=== PATIENT | male | born 1975 | race Caucasian/White ===

== ENCOUNTER 2018-05-08 18:15 | Emergency (ER) | payer SELFPAY ==
--- NOTE | 2018-05-08 19:02 | EDM.PDOC ---
ED HPI GENERAL MEDICAL PROBLEM - General Chief Complaint: General Stated Complaint: ABD PAIN Time Seen by Provider: 05/08/18 18:30 Source of Information: Reports: Patient History Limitations: Reports: No Limitations - History of Present Illness INITIAL COMMENTS - FREE TEXT/NARRATIVE: Pt claims that he has left sided back and abdominal pain for about 1 month now. Pt describes the pain as intermittent, some times it hurts in his left loin, and some times the pain from the left loin radiates into left anterior abdomen and some times the pain goes into his right lower abdomen. Pain is not present all the time. Sometime it hurts when he is sitting or sleeping, and sometimes movements like bending or twisting of the lower back causes the pain. There has been no trauma to the back or abdomen. His pain ranges up to 10/10. Today he claims his pain is at 6/10 and hurts in the left loin area. Pt's spouse claims he hurts even if she hugs him. No fever or chills. No skin rash.No nausea or vomiting, no abdominal distension , no diarrhea or constipation. No dysuria or hematuria. No fatigue or malaise. No loss of appetite or weight. No other complaints. Duration: Week(s): (4-5 weeks), Intermittent, Waxing/Waning Location: Reports: Abdomen, Back Quality: Reports: Ache Severity: Moderate Improves with: Reports: None Worsens with: Reports: None Associated Symptoms: Denies: Confusion, Chest Pain, Cough, Diaphoresis, Fever/ Chills, Headaches, Loss of Appetite, Malaise, Nausea/Vomiting, Rash, Seizure, Shortness of Breath, Syncope, Weakness - Related Data Allergies Allergy/AdvReac Type Severity Reaction Status Date / Time No Known Allergies Allergy Verified 05/08/18 18:44 Home Meds: Home Meds NK [No Known Home Meds] 05/08/18 [History] ED ROS GENERAL - Review of Systems Review Of Systems: See Below Constitutional: Denies: Fever, Chills, Malaise, Night Sweats, Diaphoresis, Weight Loss, Weight Gain HEENT: Denies: Rhinitis, Throat Pain, Throat Swelling Respiratory: Denies: Shortness of Breath, Wheezing, Pleuritic Chest Pain, Cough , Sputum Cardiovascular: Denies: Chest Pain, Lightheadedness GI/Abdominal: Reports: Flatus. Denies: Abdominal Pain, Anorexia, Constipation, Diarrhea, Decreased Appetite, Distension, Hematochezia, Nausea, Stool Incontinence, Vomiting : Reports: Flank Pain. Denies: Dysuria, Frequency, Hematuria, Incontinence Musculoskeletal: Denies: Joint Pain, Joint Swelling, Muscle Pain, Muscle Stiffness Skin: Denies: Jaundice, Bruising, Pruritis, Rash Neurological: Denies: Confusion, Dizziness, Headache, Numbness, Tingling Psychiatric: Denies: Agitation, Anxiety ED EXAM, GENERAL - Physical Exam Exam: See Below Exam Limited By: No Limitations General Appearance: Alert, WD/WN, No Apparent Distress Eye Exam: Bilateral Eye: EOMI, PERRL Ears: Normal External Exam, Normal Canal, Hearing Grossly Normal, Normal TMs Ear Exam: Bilateral Ear: Auricle Normal, Canal Normal, TM normal Nose: Normal Inspection, Normal Mucosa, No Blood Throat/Mouth: Normal Inspection, Normal Lips, Normal Teeth, Normal Gums, Normal Oropharynx, Normal Voice, No Airway Compromise Head: Atraumatic, Normocephalic Neck: Normal Inspection, Supple, Non-Tender, Full Range of Motion Respiratory/Chest: No Respiratory Distress, Lungs Clear, Normal Breath Sounds, No Accessory Muscle Use, Chest Non-Tender Cardiovascular: Normal Peripheral Pulses, Regular Rate, Rhythm, No Edema, No Gallop, No JVD, No Murmur, No Rub GI/Abdominal: Normal Bowel Sounds, Soft, Non-Tender, No Organomegaly, No Distention, No Abnormal Bruit, No Mass Back Exam: Normal Inspection, CVA Tenderness (L), Paraspinal Tenderness (tender over the left lumbar paraspinal muscles all the way form the posteiror chest margin into the iliac crest. Also pt is tender over the let costal margin laterally an also over the anterio aspect of the iiliac crest. There is no abdominal wall tenderness.) Extremities: Normal Inspection, Normal Range of Motion, Non-Tender, Normal Capillary Refill, No Pedal Edema Neurological: Alert, Oriented, CN II-XII Intact, Normal Cognition, Normal Gait, Normal Reflexes, No Motor/Sensory Deficits Skin Exam: Warm, Intact Course - Vital Signs Text/Narrative:: Pt has had 1 month history of left sided trunk pain. pain is intermittent and varies in intensity every day. Pain worsens with movement of the back like bending forward and twisting motion. Vitals are stable. On clinical exam his abdomen exam is benign. His hernia exam is negative. His tenderness is over the lower posterior ribs, left lumbar paraspinal muscles and the left iliac crest. There is no sensory paresthesia of the lower back to be concerned of herpes zoster related pain. This appears like Mechanical pain asso with back and lateral abdominal wall muscles. But patient and spouse concerned that there is some thing serious going on at this time. Patient does not have any other constitutional symptoms. This is mechanical pain or pain from left sided deep muscular or metastatic pain. These are the only differential diagnosis I can come up with patient presentation. Hence I did get Ct abdomen and pelvis. I do not think there is need for any blood work at this point. Pt's Ct abdomen appears normal. I have reassured patient and spouse that there is no acute intraabdominal pathology causing pain. There is no infective cause or bowel obstruction or mass or hernia causing the pain. Appears more like a musculoskeletal pain both from presentation and examination.Advised intermittent heat to the back 3-4 times daily, motrin 800mg 3 times daily with food for next 5 days. Avoid excessive twisting or bending activities. If pain not better in 1 wk should followup in clinic for further workup. - Orders/Labs/Meds Orders: Active Orders 24 hr Category Date Time Status Abdomen Pelvis wo Cont [CT] Stat Exams 05/08/18 18:50 Taken Departure - Departure Time of Disposition: 19:45 Disposition: Home, Self-Care 01 Condition: Fair Clinical Impression: Mechanical back pain - Discharge Information *PRESCRIPTION DRUG MONITORING PROGRAM REVIEWED*: Not Applicable *COPY OF PRESCRIPTION DRUG MONITORING REPORT IN PATIENT JACK: Not Applicable Referrals: PCP,None [Primary Care Provider] - Forms: ED Department Discharge Additional Instructions: Pt's Ct abdomen appears normal. I have reassured patient and spouse that there is no acute intraabdominal pathology causing pain. There is no infective cause or bowel obstruction or mass or hernia causing the pain. Appears more like a musculoskeletal pain both from presentation and examination.Advised intermittent heat to the back 3-4 times daily, motrin 800mg 3 times daily with food for next 5 days. Avoid excessive twisting or bending activities. If pain not better in 1 wk should followup in clinic for further workup. - Problem List & Annotations (1) Mechanical back pain SNOMED Code(s): 647337908, 554988025 Code(s): M54.9 - DORSALGIA, UNSPECIFIED Status: Acute Current Visit: Yes - Problem List Review Problem List Initiated/Reviewed/Updated: Yes - My Orders Last 24 Hours: My Active Orders 05/08/18 18:50 Abdomen Pelvis wo Cont [CT] Stat - Assessment/Plan Last 24 Hours: My Active Orders 05/08/18 18:50 Abdomen Pelvis wo Cont [CT] Stat Assessment:: Mechanical back pain- left sided Plan: Pt has had 1 month history of left sided trunk pain. pain is intermittent and varies in intensity every day. Pain worsens with movement of the back like bending forward and twisting motion. Vitals are stable. On clinical exam his abdomen exam is benign. His hernia exam is negative. His tenderness is over the lower posterior ribs, left lumbar paraspinal muscles and the left iliac crest. There is no sensory paresthesia of the lower back to be concerned of herpes zoster related pain. This appears like Mechanical pain asso with back and lateral abdominal wall muscles. But patient and spouse concerned that there is some thing serious going on at this time. Patient does not have any other constitutional symptoms. This is mechanical pain or pain from left sided deep muscular or metastatic pain. These are the only differential diagnosis I can come up with patient presentation. Hence I did get Ct abdomen and pelvis. I do not think there is need for any blood work at this point. Pt's Ct abdomen appears normal. I have reassured patient and spouse that there is no acute intraabdominal pathology causing pain. There is no infective cause or bowel obstruction or mass or hernia causing the pain. Appears more like a musculoskeletal pain both from presentation and examination.Advised intermittent heat to the back 3-4 times daily, motrin 800mg 3 times daily with food for next 5 days. Avoid excessive twisting or bending activities. If pain not better in 1 wk should followup in clinic for further workup.
--- NOTE | 2018-05-09 08:22 | CT ---
DATE OF SERVICE: 05/08/18 CLINICAL DATA: Left lower chest and back pain- Chronic. UNENHANCED ABDOMEN AND PELVIS CT: No priors. There are minimal atelectasis changes in the dependent portions of the left lower lungs. The lung base is otherwise clear. The heart size is normal. The unenhanced liver appears normal. No focal hepatic lesions. The gallbladder is contracted. No calcified gallstones. No pericholecystic fluid. The spleen appears normal. 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 The pancreas appears normal. The right and left adrenals appear normal. The right and left kidneys appear normal. No nephrocalcinosis or nephrolithiasis. No hydronephrosis or hydroureter. No evidence of appendicitis. No free air. No free fluid. No dilated loops of bowel. No adenopathy. No aortic aneurysm. The bladder is partially fluid filled and appears normal. There is an umbilical hernia containing fat. IMPRESSION: No acute abnormalities. Otherwise findings as discussed above. [id number] [facility]
== END 2018-05-08 19:50 | disposition home or self-care (01) ==
LOC: LB.ED 18:15
DX: M54.5 Low back pain (principal)
CPT/HCPCS: 74176; 99284-25

== ENCOUNTER 2018-12-07 | Emergency (ER) | payer MEDICAID, MEDICARE ==
[2018-12-07] MEDS ORDERED: Amoxicillin/Clavulanate K 875-125 MG Tab ONE (00:10)
--- NOTE | 2018-12-07 09:27 | EDM.PDOC ---
ED HPI GENERAL MEDICAL PROBLEM - General Chief Complaint: General Stated Complaint: SORE THROAT Time Seen by Provider: 12/07/18 00:10 Source of Information: Reports: Patient History Limitations: Reports: No Limitations - History of Present Illness INITIAL COMMENTS - FREE TEXT/NARRATIVE: This is a 43yo M with a mass of the right neck area that is tender and has grown the past few days. He denies fever or chills. Denies any other concerns. He felt off the past few days but cannot put a finger on it. Onset: Gradual Duration: Day(s): Location: Reports: Neck - Related Data Allergies Allergy/AdvReac Type Severity Reaction Status Date / Time No Known Allergies Allergy Verified 12/07/18 03:31 Home Meds: Home Meds NK [No Known Home Meds] 05/08/18 [History] Past Medical History - Past Health History Medical/Surgical History: Denies Medical/Surgical History Social & Family History - Family History Family Medical History: Noncontributory - Tobacco Use Smoking Status *Q: Never Smoker Second Hand Smoke Exposure: No - Caffeine Use Caffeine Use: Reports: None - Recreational Drug Use Recreational Drug Use: No ED ROS GENERAL - Review of Systems Review Of Systems: ROS reveals no pertinent complaints other than HPI. ED EXAM, GENERAL - Physical Exam Exam: See Below Exam Limited By: No Limitations General Appearance: Alert, WD/WN, No Apparent Distress Eye Exam: Bilateral Eye: EOMI, PERRL Ears: Normal External Exam Nose: Normal Inspection Throat/Mouth: Normal Inspection Head: Atraumatic, Normocephalic Neck: Other (2x2cm mass of right neck) Course - Vital Signs Last Recorded V/S: Last Vital Signs Temp 36.6 C 12/07/18 00:07 Pulse 88 12/07/18 00:07 Resp 18 12/07/18 00:07 BP 134/73 12/07/18 00:07 Pulse Ox 98 12/07/18 00:07 - Orders/Labs/Meds Meds: Medications Discontinued Medications Generic Name Dose Route Start Last Admin Trade Name Freq PRN Reason Stop Dose Admin Amoxicillin/Clavulanate Potassium 20 tab 12/07/18 00:10 Augmentin 875 Mg/125 Mg .ROUTE 12/07/18 00:11 .STK-MED ONE Departure - Departure Time of Disposition: 00:35 Disposition: Home, Self-Care 01 Condition: Good Clinical Impression: Lymph node enlargement - Discharge Information Instructions: Amoxicillin; Clavulanic Acid tablets Referrals: Josef Villegas MD [Primary Care Provider] - Forms: ED Department Discharge Additional Instructions: Discharge home. Augmentin 1 tablet 2 times a day for 10 days as directed. Take with food. Follow up in the clinic if symptoms are going improving in 2 days. Tylenol or ibuprofen for pain as directed. - Problem List & Annotations (1) Lymph node enlargement SNOMED Code(s): 25158800 Code(s): R59.9 - ENLARGED LYMPH NODES, UNSPECIFIED Status: Acute - Problem List Review Problem List Initiated/Reviewed/Updated: Yes - Assessment/Plan Plan: Counseled on differential and possible infected lymph node, abscess or lesion. Antibiotics use and side effects discussed. Counseled on close monitoring and the need for f/u if mass remains or worsens. F/u immediately if any concerns and within a week.
== END 2018-12-07 00:25 | disposition home or self-care (01) ==
LOC: LB.ED
DX: R59.0 Localized enlarged lymph nodes (principal)
CPT/HCPCS: 99283; A9270

== ENCOUNTER 2019-03-28 21:41 | Emergency (ER) | payer MEDICAID ==
[2019-03-28] MEDS ORDERED: Benzonatate 100 MG Cap ONE (22:00)
--- NOTE | 2019-03-28 22:26 | EDM.PDOC ---
ED HPI GENERAL MEDICAL PROBLEM - General Chief Complaint: General Stated Complaint: FLU LIKE SYMPTOMS Time Seen by Provider: 03/28/19 22:15 Source of Information: Reports: Patient, RN History Limitations: Reports: No Limitations - History of Present Illness INITIAL COMMENTS - FREE TEXT/NARRATIVE: 43 yo male presents with increase in cough, loose BM X 3 today. Body aches. He was started on Augmentin on Monday, he had a negative Strep and negative Influenza screen. He has had a couple gatorade today, pizza, and couple snacks today. 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 He did go to work today, but didn' t work since about . Generalized Pain Score (Numeric/FACES): 5 - Related Data Allergies Allergy/AdvReac Type Severity Reaction Status Date / Time No Known Allergies Allergy Verified 03/28/19 21:45 Home Meds: Home Meds Amoxicillin/Potassium Clav [Augmentin 875-125 Tablet] 1 each PO Q12HR 03/28/19 [ History] Lactobacillus Acidophilus [Probiotic Acidophilus] 1 each PO DAILY #30 tablet [Rx] Past Medical History - Past Health History Medical/Surgical History: Denies Medical/Surgical History - Past Surgical History Musculoskeletal Surgical History: Reports: Arthroscopic Knee Social & Family History - Family History Family Medical History: Noncontributory - Tobacco Use Smoking Status *Q: Former Smoker Years of Tobacco use: 4 Packs/Tins Daily: 1 Used Tobacco, but Quit: Yes Month/Year Tobacco Last Used: 12/2018 Second Hand Smoke Exposure: No - Caffeine Use Caffeine Use: Reports: Soda - Recreational Drug Use Recreational Drug Use: No ED ROS GENERAL - Review of Systems Review Of Systems: See Below Constitutional: Reports: Fever, Decreased Appetite HEENT: Denies: Dental Pain, Ear Pain, Sinus Problem Respiratory: Reports: Shortness of Breath, Cough, Sputum Cardiovascular: Reports: Other (chest pain) GI/Abdominal: Reports: Abdominal Pain, Diarrhea, Decreased Appetite : Denies: Dysuria Skin: Reports: No Symptoms Neurological: Reports: No Symptoms Psychiatric: Denies: Anxiety, Depression ED EXAM, GENERAL - Physical Exam Exam: See Below Exam Limited By: No Limitations General Appearance: Alert, No Apparent Distress Ears: Normal External Exam, Normal Canal, Hearing Grossly Normal Nose: Normal Inspection Throat/Mouth: Normal Voice, No Airway Compromise Head: Atraumatic, Normocephalic Neck: Supple, Full Range of Motion Respiratory/Chest: Rhonchi. No: Wheezing Cardiovascular: Regular Rate, Rhythm Neurological: Alert, Oriented, Normal Cognition Psychiatric: Normal Affect Skin Exam: Warm, Dry, Normal Color Course - Vital Signs Last Recorded V/S: Last Vital Signs Temp 97.3 F 03/28/19 21:57 Pulse 95 03/28/19 21:57 Resp 20 03/28/19 21:57 BP 149/78 H 03/28/19 21:57 Pulse Ox 96 03/28/19 21:57 - Orders/Labs/Meds Orders: Active Orders 24 hr Category Date Time Status Chest 2V [CR] Stat Exams 03/28/19 22:19 Taken Labs: Laboratory Tests 03/28/19 03/28/19 Range/Units 22:40 22:40 WBC 4.4 D (4.0-11.0) K/uL RBC 4.66 (4.50-6.50) M/uL Hgb 13.9 (13.0-18.0) g/dL Hct 42.1 (40.0-54.0) % MCV 90 (76-96) fL MCH 29.8 (27.0-32.0) pg MCHC 33.0 (31.0-35.0) g/dL RDW 13.0 (11.0-16.0) % Plt Count 228 D (150-400) K/uL MPV 9.1 (6.0-10.0) fL Neut % (Auto) 54.8 (45.0-70.0) % Lymph % (Auto) 26.6 (20.0-40.0) % [place] % (Auto) 12.7 H (3.0-10.0) % Eos % (Auto) 5.7 H (1.0-5.0) % Baso % (Auto) 0.2 (0.0-0.5) % Neut # (Auto) 2.41 (2.00-7.50) K/uL Lymph # (Auto) 1.17 L (1.50-4.00) K/uL [place] # (Auto) 0.56 (0.20-0.80) K/uL Eos # (Auto) 0.25 (0.04-0.40) K/uL Baso # (Auto) 0.01 L (0.02-0.10) K/uL Sodium 141 (136-145) mmol/L Potassium 3.7 (3.5-5.1) mmol/L Chloride 105 (98-107) mmol/L Carbon Dioxide 24.2 (21.0-32.0) mmol/L Anion Gap 15.5 H (5.0-15.0) mmol/L BUN 18 (8-26) mg/dL Creatinine 1.10 (0.70-1.30) mg/dL Est Cr Clr Drug Dosing 85.70 mL/min Estimated GFR (MDRD) > 60 (>60) MLS/MIN BUN/Creatinine Ratio 16.4 (6-25) Glucose 118 H (74-100) mg/dL Calcium 8.3 L (8.5-10.1) mg/dL - Re-Assessments/Exams Free Text/Narrative Re-Assessment/Exam: 03/28/19 Counseled on viral respiratory infection. Continue with Augmentin bid take with food, will start Probiotic and Tessalon Perles for cough. Will send Rx in am for Guaifenesin w codeine tid prn. Recommend increase in fluids, Tylenol or Ibuprofen as needed. Symptoms should improve in a couple days. Departure - Departure Time of Disposition: 23:08 Disposition: Home, Self-Care 01 Condition: Good Clinical Impression: Viral respiratory infection - Discharge Information Instructions: Benzonatate capsules Referrals: PCP,None [Primary Care Provider] - Forms: ED Department Discharge Additional Instructions: Use provided Tessalon Perles as instructed: 1 capsule by mouth every 8 hours as needed for cough. 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 Continue taking previously prescribed antibiotic-be sure to take with food to help avoid upset stomach. Continue with Ibuprofen and/or Tylenol according to package instructions as needed for pain/fever. Drink plenty of fluids (water) and get plenty of rest. Diet and activity as tolerated. Follow up in clinic as needed. Call with any questions. Sepsis Event Note - Evaluation Sepsis Screening Result: No Definite Risk - Focused Exam Vital Signs: Vital Signs Temp Pulse Resp BP Pulse Ox 03/28/19 21:57 97.3 F 95 20 149/78 H 96 03/28/19 21:54 97.3 F 95 20 149/78 H 96 Date Exam was Performed: 03/28/19 Time Exam was Performed: 23:00 - My Orders Last 24 Hours: My Active Orders 03/28/19 22:19 Chest 2V [CR] Stat - Assessment/Plan Last 24 Hours: My Active Orders 03/28/19 22:19 Chest 2V [CR] Stat Plan: Counseled on viral respiratory infection. Continue with Augmentin bid take with food, will start Probiotic and Tessalon Perles for cough. Will send Rx in am for Guaifenesin w codeine tid prn. Recommend increase in fluids, Tylenol or Ibuprofen as needed. Symptoms should improve in a couple days.
--- NOTE | 2019-03-29 17:28 | CR ---
DATE OF SERVICE: 03/28/19 CLINICAL DATA: cough PA AND LATERAL CHEST: Comparison is made to a prior exam dated 02/08/18. The patient has taken a poor inspiration. The heart size is normal. The lungs appear clear. No pneumothorax. No pleural effusions. No evidence of acute intrathoracic disease. [id number] [facility]
== END 2019-03-28 23:02 | disposition home or self-care (01) ==
LOC: LB.ED 21:41
DX: J98.8 Other specified respiratory disorders (principal); Z87.891 Personal history of nicotine dependence
CPT/HCPCS: 36415; 71046; 80048; 85025; 99283; A9270

== ENCOUNTER 2019-05-24 13:58 | Emergency (ER) | payer MEDICAID ==
[2019-05-24] MEDS: Sodium Chloride 0.9% 1,000 ML IV ONE (15:00)
[2019-05-24] MEDS: predniSONE 10 MG Tab PO ONE (15:00)
[2019-05-24] MEDS: predniSONE 20 MG Tab PO ONE (15:00)
[2019-05-24] MEDS ORDERED: predniSONE 20 MG Tab ONE ×2 (15:03→15:08)
[2019-05-24] MEDS: Ketorolac 30 MG/ML SDV IVPUSH ONE (15:12)
--- NOTE | 2019-05-24 16:38 | CR ---
CLINICAL DATA: Rule out rheumatoid arthritis. RIGHT FOOT, 24 MAY 2019: No acute fracture or dislocation. No lytic or blastic bone lesions. No significant arthritic changes. There is hammertoe deformity involving multiple toes. LEFT FOOT, 24 MAY 2019: No acute fracture or dislocation. No lytic or blastic bone lesions. No significant arthritic changes. There is hammertoe deformity involving multiple toes. Job: [id number] [facility]
--- NOTE | 2019-05-24 17:47 | EDM.PDOC ---
ED HPI GENERAL MEDICAL PROBLEM - General Chief Complaint: General Stated Complaint: HAND SWOLLEN Time Seen by Provider: 05/24/19 13:58 - History of Present Illness INITIAL COMMENTS - FREE TEXT/NARRATIVE: Kenn presents to the clinic as a walk-in today. He states that he was completely fine until this morning, when he woke up with a red hot swollen hand on the right. 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 He has had no previous rheumatologic diagnosis, and is not aware of any family history of such. He has had no photosensitivity , rash, pleurisy, or episodes of pericarditis. He has enjoyed good health throughout his life. Right Hand Pain Score (Numeric/FACES): 9 - Related Data Allergies Allergy/AdvReac Type Severity Reaction Status Date / Time No Known Allergies Allergy Verified 03/28/19 21:45 Home Meds: Home Meds Amoxicillin/Potassium Clav [Augmentin 875-125 Tablet] 1 each PO Q12HR 03/28/19 [ History] Lactobacillus Acidophilus [Probiotic Acidophilus] 1 each PO DAILY #30 tablet [Rx] Past Medical History - Past Health History Medical/Surgical History: Denies Medical/Surgical History - Past Surgical History Musculoskeletal Surgical History: Reports: Arthroscopic Knee Social & Family History - Family History Family Medical History: Noncontributory - Tobacco Use Smoking Status *Q: Never Smoker Second Hand Smoke Exposure: No - Caffeine Use Caffeine Use: Reports: Coffee - Recreational Drug Use Recreational Drug Use: No ED ROS GENERAL - Review of Systems Review Of Systems: Comprehensive ROS is negative, except as noted in HPI. ED EXAM, GENERAL - Physical Exam Exam: See Below Exam Limited By: No Limitations General Appearance: Alert, Anxious, Mild Distress Eye Exam: Bilateral Eye: EOMI, PERRL Ears: Normal External Exam Nose: Normal Inspection Throat/Mouth: Normal Inspection, Normal Lips Head: Atraumatic, Normocephalic Neck: Normal Inspection, Supple, Non-Tender, Full Range of Motion Respiratory/Chest: No Respiratory Distress, Lungs Clear, Normal Breath Sounds Cardiovascular: Regular Rate, Rhythm, No Murmur GI/Abdominal: Normal Bowel Sounds, Soft, Non-Tender Extremities: Normal Capillary Refill, Other (nspection reveals inflammation primarily of his MCP joints particularly in the long and index fingers. He does have pretty decent active range of motion, but this seems to be visibly painful. ) Neurological: Alert, Oriented, Normal Cognition, Normal Gait, No Motor/Sensory Deficits Psychiatric: Normal Mood Skin Exam: Warm, Dry, No Rash Lymphatic: No Adenopathy Course - Vital Signs Text/Narrative:: Dr. Barrett and I reviewed the literature and decided together after his Solu- Medrol load, to continue with a prednisone burst. Plan to see him in the clinic. Attribute his elevated blood pressure to him being visibly uncomfortable with the pain of his hand. We will ensure that this resolves and follow-up early next week. Last Recorded V/S: Last Vital Signs Temp 97.7 F 05/24/19 14:23 Pulse 99 05/24/19 14:23 Resp 16 05/24/19 14:23 BP 158/102 H 05/24/19 14:23 Pulse Ox 98 05/24/19 14:23 - Orders/Labs/Meds Orders: Active Orders 24 hr Category Date Time Status Hand Comp Min 3V Bi [CR] Stat Exams 05/24/19 14:16 Taken ANTICARDIOLIP AB, IGA/G/M, QN Stat Lab 05/24/19 14:09 Received CCP ANTIBODIES IGG/IGA Stat Lab 05/24/19 14:09 Received HEPATITIS PANEL (4) Stat Lab 05/24/19 14:09 Received LYME, TOTAL AB TEST/REFLEX Stat Lab 05/24/19 14:09 Received RHEUMATOID ARTHRITIS FACTOR Routine Lab 05/24/19 14:09 Received Labs: Laboratory Tests 05/24/19 05/24/19 05/24/19 Range/Units 14:28 14:35 14:35 WBC 8.7 D (4.0-11.0) K/uL RBC 4.70 (4.50-6.50) M/uL Hgb 14.1 (13.0-18.0) g/dL Hct 41.6 (40.0-54.0) % MCV 89 (76-96) fL MCH 30.0 (27.0-32.0) pg MCHC 33.9 (31.0-35.0) g/dL RDW 13.6 (11.0-16.0) % Plt Count 331 D (150-400) K/uL MPV 9.1 (6.0-10.0) fL Neut % (Auto) 69.9 (45.0-70.0) % Lymph % (Auto) 20.8 (20.0-40.0) % [place] % (Auto) 6.7 (3.0-10.0) % Eos % (Auto) 2.1 (1.0-5.0) % Baso % (Auto) 0.5 (0.0-0.5) % Neut # (Auto) 6.05 (2.00-7.50) K/uL Lymph # (Auto) 1.80 (1.50-4.00) K/uL [place] # (Auto) 0.58 (0.20-0.80) K/uL Eos # (Auto) 0.18 (0.04-0.40) K/uL Baso # (Auto) 0.04 (0.02-0.10) K/uL ESR 9 (0-15) mm/hr Sodium (136-145) mmol/L Potassium (3.5-5.1) mmol/L Chloride (98-107) mmol/L Carbon Dioxide (21.0-32.0) mmol/L Anion Gap (5.0-15.0) mmol/L BUN (8-26) mg/dL Creatinine (0.70-1.30) mg/dL Est Cr Clr Drug Dosing mL/min Estimated GFR (MDRD) (>60) MLS/MIN BUN/Creatinine Ratio (6-25) Glucose (74-100) mg/dL Uric Acid 5.4 (2.6-7.2) mg/dL Calcium (8.5-10.1) mg/dL Total Bilirubin (0.0-1.0) mg/dL AST (15-37) U/L ALT (12-78) U/L Alkaline Phosphatase (46-116) U/L C-Reactive Protein (0.0-3.0) mg/L Total Protein (6.4-8.2) g/dL Albumin (3.4-5.0) g/dL Globulin (2.2-4.2) g/dL Albumin/Globulin Ratio (0.8-2.0) Urine Color Yellow Urine Appearance Clear (CLEAR) Urine pH 6.0 (5.0-8.0) Ur Specific [place] >= 1.030 (1.003-1.030) Urine Protein Negative (NEGATIVE) mg/dL Urine Glucose (UA) Negative (NEGATIVE) mg/dL Urine Ketones Negative (NEGATIVE) mg/dL Urine Occult Blood Negative (NEGATIVE) Urine Nitrite Negative (NEGATIVE) Urine Bilirubin Negative (NEGATIVE) Urine Urobilinogen 0.2 (0.2-1.0) E.U./dL Ur Leukocyte Esterase Negative (NEGATIVE) Urine RBC Not seen /HPF Urine WBC Not seen /HPF Ur Squamous Epith Cells Rare /HPF Urine Bacteria Not seen /HPF 05/24/19 Range/Units 14:35 WBC (4.0-11.0) K/uL RBC (4.50-6.50) M/uL Hgb (13.0-18.0) g/dL Hct (40.0-54.0) % MCV (76-96) fL MCH (27.0-32.0) pg MCHC (31.0-35.0) g/dL RDW (11.0-16.0) % Plt Count (150-400) K/uL MPV (6.0-10.0) fL Neut % (Auto) (45.0-70.0) % Lymph % (Auto) (20.0-40.0) % [place] % (Auto) (3.0-10.0) % Eos % (Auto) (1.0-5.0) % Baso % (Auto) (0.0-0.5) % Neut # (Auto) (2.00-7.50) K/uL Lymph # (Auto) (1.50-4.00) K/uL [place] # (Auto) (0.20-0.80) K/uL Eos # (Auto) (0.04-0.40) K/uL Baso # (Auto) (0.02-0.10) K/uL ESR (0-15) mm/hr Sodium 139 (136-145) mmol/L Potassium 4.1 (3.5-5.1) mmol/L Chloride 104 (98-107) mmol/L Carbon Dioxide 23.0 (21.0-32.0) mmol/L Anion Gap 16.1 H (5.0-15.0) mmol/L BUN 19 (8-26) mg/dL Creatinine 1.15 (0.70-1.30) mg/dL Est Cr Clr Drug Dosing 81.12 mL/min Estimated GFR (MDRD) > 60 (>60) MLS/MIN BUN/Creatinine Ratio 16.5 (6-25) Glucose 117 H (74-100) mg/dL Uric Acid (2.6-7.2) mg/dL Calcium 8.8 (8.5-10.1) mg/dL Total Bilirubin 0.3 (0.0-1.0) mg/dL AST 27 (15-37) U/L ALT 54 (12-78) U/L Alkaline Phosphatase 130 H (46-116) U/L C-Reactive Protein 1.1 (0.0-3.0) mg/L Total Protein 7.7 (6.4-8.2) g/dL Albumin 3.7 (3.4-5.0) g/dL Globulin 4.0 (2.2-4.2) g/dL Albumin/Globulin Ratio 0.9 (0.8-2.0) Urine Color Urine Appearance (CLEAR) Urine pH (5.0-8.0) Ur Specific [place] (1.003-1.030) Urine Protein (NEGATIVE) mg/dL Urine Glucose (UA) (NEGATIVE) mg/dL Urine Ketones (NEGATIVE) mg/dL Urine Occult Blood (NEGATIVE) Urine Nitrite (NEGATIVE) Urine Bilirubin (NEGATIVE) Urine Urobilinogen (0.2-1.0) E.U./dL Ur Leukocyte Esterase (NEGATIVE) Urine RBC /HPF Urine WBC /HPF Ur Squamous Epith Cells /HPF Urine Bacteria /HPF Meds: Medications Discontinued Medications Generic Name Dose Route Start Last Admin Trade Name Freq PRN Reason Stop Dose Admin Sodium Chloride 1,000 mls @ 1,000 mls/hr 05/24/19 14:16 05/24/19 15:00 Normal Saline IV 05/24/19 15:15 Not Given .BOLUS ONE Ketorolac Tromethamine 10 mg 05/24/19 14:16 05/24/19 15:12 Toradol IVPUSH 05/24/19 14:17 Not Given ONETIME ONE Prednisone Confirm 05/24/19 15:03 Prednisone Administered 05/24/19 15:04 Dose 20 mg .ROUTE .STK-MED ONE Prednisone 20 mg 05/24/19 14:57 05/24/19 15:00 Prednisone PO 05/24/19 14:58 20 mg ONETIME ONE Administration Prednisone Confirm 05/24/19 15:08 Prednisone Administered 05/24/19 15:09 Dose 20 mg .ROUTE .STK-MED ONE Prednisone 10 mg 05/24/19 15:03 05/24/19 15:00 Prednisone PO 05/24/19 15:04 10 mg ONETIME ONE Administration Departure - Departure Time of Disposition: 15:30 Disposition: Home, Self-Care 01 Clinical Impression: Synovitis - Discharge Information Instructions: Arthritis, [id number], Rheumatoid Factor Test Referrals: PCP,None [Primary Care Provider] - Forms: ED Department Discharge Care Plan Goals: Take medication as prescribed, prednisone 15mg 2 times a day for 5 days. Return to clinic on Monday or Monday next week follow up with Dr Santiago. Call with any questions or concerns return to hospital or clinic with any questions or concerns. Sepsis Event Note - Evaluation Sepsis Screening Result: No Definite Risk - Focused Exam Vital Signs: Vital Signs Temp Pulse Resp BP Pulse Ox 05/24/19 14:23 97.7 F 99 16 158/102 H 98 Date Exam was Performed: 05/24/19 Time Exam was Performed: 17:47
--- NOTE | 2019-05-28 11:34 | CR ---
DATE OF SERVICE: 05/24/19 CLINICAL DATA: r/o RA. RIGHT HAND: There are mild osteoarthritic changes involving multiple joints. There are small juxtaarticular erosions involving the heads of the 2nd and 3rd metacarpals. There is deformity of the 5th metacarpal, most likely related to prior trauma. No other significant findings. Job: [id number] LEFT HAND: No acute fracture or dislocation. No lytic or blastic bone lesions. No significant arthritic changes. [id number] [facility]
[2019-05-29 08:10] LABS: HBSAG SCREEN Negative (Negative); HEP A AB, IGM Negative (Negative); HEP B CORE AB, IGM Negative (Negative); HEP C VIRUS AB <0.1 s/co ratio (0.0-0.9)
== END 2019-05-24 15:36 | disposition home or self-care (01) ==
LOC: LB.ED 13:58
DX: M65.9 Synovitis and tenosynovitis, unspecified (principal)
CPT/HCPCS: 73130-50; 73620-50; 80053; 80074; 81001; 84550; 85025; 85651; 86140; 86147; 86200; 86431; 99283; 99283-25; A9270-GY

== ENCOUNTER 2019-09-03 16:44 | Emergency (ER) | payer MEDICAID ==
[2019-09-03] MEDS ORDERED: Ketorolac 60 MG/2 ML SDV IM ONE (18:02)
[2019-09-03] MEDS ORDERED: Ketorolac 60 MG/2 ML SDV ONE (18:25)
--- NOTE | 2019-09-03 20:15 | ER ---
HISTORY OF PRESENT ILLNESS: A 44-year-old male who comes to the emergency room with complaints of lower back pain bilaterally. He states this started about 2 weeks ago. It seems to come and go, some days are better than others. Yesterday, he felt very good. Today it is worse again. 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 He states that when he is moving around, he feels like he is kind of beat up in the low back area. He has not had any abdominal surgeries. The patient has not taken any [id number] medications. He is not allergic to any medications. He rates his current pain at 6/10. OBJECTIVE: GENERAL APPEARANCE: The patient is awake and alert. No obvious distress. VITAL SIGNS: Reviewed. He is afebrile. Pulse is 103, blood pressure 142/93, O2 sats are 98%, respirations 16. LUNGS: Clear. There is no CVA tenderness with percussion. I can reproduce some discomfort with palpation of the lower lumbar spine radiating out past the SI joints bilaterally. SKIN: Warm and dry. ABDOMEN: Soft. There is no discomfort with palpation of the abdomen. INITIAL TREATMENT: Toradol 60 mg was given IM. Labs done today include CBC, CMP, sedimentation rate, and a UA. Lab results are all negative or normal. CT of the abdomen and pelvis reveals degenerative changes of the posterior lower chest wall, lower spine, and transverse process with some small scattered Schmorl's nodes in the lower thoracic and upper lumbar area. DIAGNOSIS: Low back and flank pain due to degenerative changes of the spine, posterior chest wall, and transverse process area. TREATMENT PLAN: I advised patient to use [id number] medications, Tylenol or an NSAID. He can alternate between the two and he should use this regularly for a week or so and then as needed. Activity should be as tolerated. Recheck should be in 7 to 10 days or so with his primary care provider, sooner of course if his condition should get worse. I feel that his degenerative changes in the low back need to be monitored. He tells me he does not have a local primary care provider, but he does see someone in Rheumatology in [place] for other reasons. The patient has no further questions. CRS/MODL /[id number] MAEVE
--- NOTE | 2019-09-04 08:58 | CT ---
DATE OF SERVICE: 09/03/19 CLINICAL DATA: flank pain, side pain for weeks UNENHANCED ABDOMEN AND PELVIC CT: Multislice acquisition through the abdomen and pelvis without IV or oral contrast was performed. Comparison is made to a prior exam dated 05/08/18. The lung bases are clear. The heart size is normal. The unenhanced liver appears normal. No focal hepatic lesions. The gallbladder appears normal. The spleen appears normal. The pancreas appears normal. The right and left adrenals appear normal. The right and left kidneys appear normal. No nephrocalcinosis or nephrolithiasis. No hydronephrosis or hydroureter. The bladder is partially fluid-filled. It appears normal. No evidence of appendicitis. There is a moderate amount of stool present within the ascending and transverse colon. No free air. No free fluid. No dilated loops of bowel. No adenopathy. No aortic aneurysm. There is a fat-containing umbilical hernia. There is degenerative disc disease throughout the lower thoracic and lumbar spine. [id number] [facility]
== END 2019-09-03 19:37 | disposition home or self-care (01) ==
LOC: LB.ED 16:44
DX: M47.816 Spondylosis without myelopathy or radiculopathy, lumbar region (principal)
CPT/HCPCS: 36415; 74176; 80053; 81001; 85025; 85651; 96372; 99284; J1885

== ENCOUNTER 2019-09-23 02:32 | Emergency (ER) | payer MEDICAID ==
[2019-09-23] MEDS: Diazepam 5 MG Tab PO ONE (02:53)
[2019-09-23] MEDS: Ketorolac 30 MG/ML SDV IM ONE (02:54)
--- NOTE | 2019-09-23 03:09 | EDM.PDOC ---
ED HPI GENERAL MEDICAL PROBLEM - General Chief Complaint: Back Pain or Injury Stated Complaint: back pain Time Seen by Provider: 09/23/19 02:35 Source of Information: Reports: Patient History Limitations: Reports: No Limitations - History of Present Illness INITIAL COMMENTS - FREE TEXT/NARRATIVE: pt presents to the ER with left side back pain, he states his back spasm woke him from sleep during the night and it "didn't let go, became worse and hard to breathe". pt states this back pain has been ongoing for several weeks intermittently and worsened with certain activity or stretching. pt states the pain/spasms worsen with position changes from sitting to standing and standing to laying. he denies fever, chills, dysuria, saddle anesthesia, bowel or bladder loss of control, IV drug use. Left Lower Back Pain Score (Numeric/FACES): 10 - Related Data Allergies Allergy/AdvReac Type Severity Reaction Status Date / Time No Known Allergies Allergy Verified 09/23/19 02:36 Home Meds: Home Meds NK [No Known Home Meds] 09/03/19 [History] Past Medical History - Past Health History Medical/Surgical History: Denies Medical/Surgical History - Past Surgical History Musculoskeletal Surgical History: Reports: Arthroscopic Knee Social & Family History - Family History Family Medical History: Noncontributory - Caffeine Use Caffeine Use: Reports: Coffee ED ROS GENERAL - Review of Systems Review Of Systems: Comprehensive ROS is negative, except as noted in HPI. ED EXAM, GENERAL - Physical Exam Exam: See Below Exam Limited By: No Limitations General Appearance: Alert, WD/WN, Mild Distress Respiratory/Chest: No Respiratory Distress, Lungs Clear, Normal Breath Sounds, No Accessory Muscle Use Cardiovascular: Normal Peripheral Pulses, Regular Rate, Rhythm, No Edema, No JVD, No Murmur Back Exam: Muscle Spasm (left lumbar region), Paraspinal Tenderness (left lumbar region) Extremities: Normal Inspection, Normal Range of Motion, Non-Tender, Normal Capillary Refill Neurological: Alert, Oriented, CN II-XII Intact, Normal Cognition Psychiatric: Normal Affect, Normal Mood Skin Exam: Warm, Dry, Intact Course - Vital Signs Last Recorded V/S: Last Vital Signs Temp 97.0 F 09/23/19 02:37 Pulse 88 09/23/19 02:37 Resp 20 09/23/19 02:37 BP 117/81 09/23/19 02:37 Pulse Ox 100 09/23/19 02:37 - Orders/Labs/Meds Meds: Medications Discontinued Medications Generic Name Dose Route Start Last Admin Trade Name [place] PRN Reason Stop Dose Admin Diazepam 5 mg 09/23/19 02:46 Valium. PO 09/23/19 02:47 ONETIME ONE Ketorolac Tromethamine 15 mg 09/23/19 02:46 Toradol IM 09/23/19 02:47 ONETIME ONE Departure - Departure Time of Disposition: 03:28 Disposition: Home, Self-Care 01 Clinical Impression: Muscle spasm of back - Discharge Information *PRESCRIPTION DRUG MONITORING PROGRAM REVIEWED*: Yes *COPY OF PRESCRIPTION DRUG MONITORING REPORT IN PATIENT JACK: No Instructions: Muscle Cramps and Spasms, [id number] Additional Instructions: tylenol 1,000mg four times a day and ibuprofen 600mg four times a day switch between ice and warm packs gentle stretching in hot shower after taking a muscle relaxer continue with physical therapy Sepsis Event Note (ED) - Evaluation Sepsis Screening Result: No Definite Risk - Focused Exam Vital Signs: Vital Signs Temp Pulse Resp BP Pulse Ox 09/23/19 02:37 97.0 F 88 20 117/81 100 - Problem List & Annotations (1) Muscle spasm of back SNOMED Code(s): 335361777 Code(s): M62.830 - MUSCLE SPASM OF BACK Status: Acute Current Visit: Yes - Problem List Review Problem List Initiated/Reviewed/Updated: Yes - Assessment/Plan Assessment:: assessment: muscle spasm of lower back plan: toradol and valium pt evaluated in the ER in context of the covid19 pandemic. by history and exam he has lower back spasm which was treated with valium and toradol. 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 he was also instructed on proper body mechanics and posture with use of OTC medications for discomfort. also encouraged to continue with PT as scheduled.
== END 2019-09-23 03:30 | disposition home or self-care (01) ==
LOC: LB.ED 02:32
DX: M62.830 Muscle spasm of back (principal)
CPT/HCPCS: 96372; 99283; A9270; J1885

== ENCOUNTER 2019-10-13 14:57 | Emergency (ER) | payer MEDICAID ==
[2019-10-13] MEDS ORDERED: Furosemide 40 MG/4 ML VIAL IVPUSH ONE (15:48)
--- NOTE | 2019-10-13 17:15 | EDM.PDOC ---
ED HPI GENERAL MEDICAL PROBLEM - General Chief Complaint: Lower Extremity Injury/Pain Stated Complaint: Bilateral Leg Pain Time Seen by Provider: 10/13/19 15:08 Source of Information: Reports: Patient History Limitations: Reports: No Limitations - History of Present Illness INITIAL COMMENTS - FREE TEXT/NARRATIVE: chronic back pain patient, started on neurontin for pain. Presented to clinic 3 days ago with left LE edema in foot/ankle which he thought was related to neurontin, he was DX with left LE cellulitis and started on augmentin. Today he presents to ED with increased edema in left foot/ankle and now in right foot/ankle. On presentation patient able to ambulate, with pain and SOB. Weight gain x 10 pounds since clinic visit 5 days ago. Denies CP, WETZEL, N/V/D. 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) - Related Data Allergies Allergy/AdvReac Type Severity Reaction Status Date / Time No Known Allergies Allergy Verified 10/13/19 15:01 Home Meds: Home Meds Amoxicillin/Potassium Clav [Augmentin 875-125 Tablet] 1 tab PO BID 10/13/19 [History] Gabapentin [Neurontin] 100 mg PO BID 10/13/19 [History] Past Medical History - Past Health History Medical/Surgical History: Denies Medical/Surgical History Musculoskeletal History: Reports: Back Pain, Chronic Other Musculoskeletal History: acute back pain - Past Surgical History Musculoskeletal Surgical History: Reports: Arthroscopic Knee Other Musculoskeletal Surgeries/Procedures:: sees rheumatology in [place] Social & Family History - Family History Family Medical History: Noncontributory - Tobacco Use Smoking Status *Q: Former Smoker Years of Tobacco use: 5 Packs/Tins Daily: 0.5 Used Tobacco, but Quit: No Second Hand Smoke Exposure: No - Caffeine Use Caffeine Use: Reports: Coffee, Soda - Recreational Drug Use Recreational Drug Use: No Review of Systems - Review of Systems Review Of Systems: See Below Constitutional: Reports: No Symptoms Eyes: Reports: No Symptoms Ears: Reports: No Symptoms Nose: Reports: No Symptoms Mouth/Throat: Reports: No Symptoms Respiratory: Reports: Shortness of Breath Cardiovascular: Reports: No Symptoms GI/Abdominal: Reports: No Symptoms Genitourinary: Reports: No Symptoms Musculoskeletal: Reports: Leg Pain, Foot Pain Skin: Reports: No Symptoms Neurological: Reports: No Symptoms Psychiatric: Reports: No Symptoms ED EXAM, GENERAL - Physical Exam Exam: See Below Exam Limited By: No Limitations General Appearance: Alert, Anxious, Mild Distress Nose: Normal Inspection Head: Atraumatic, Normocephalic Respiratory/Chest: Lungs Clear, Normal Breath Sounds, Respiratory Distress (patient speaking in 3-4 word sentances) Cardiovascular: Normal Peripheral Pulses, Regular Rate, Rhythm, No JVD, No Murmur Peripheral Pulses: 3+: Posterior Tibial (L), Posterior Tibial (R), Dorsalis Pedis (L), Dorsalis Pedis (R) GI/Abdominal: Normal Bowel Sounds, Soft, Non-Tender Back Exam: Normal Inspection, Vertebral Tenderness (chronic) Extremities: Pedal Edema. No: Rolando's Sign, Leg Pain, Limited Range of Motion Neurological: Alert, Oriented, No Motor/Sensory Deficits Psychiatric: Anxious Skin Exam: Warm, Dry, Intact Lymphatic: No Adenopathy Course - Vital Signs Last Recorded V/S: Last Vital Signs Temp 98.3 F 10/13/19 15:48 Pulse 80 10/13/19 17:08 Resp 22 H 10/13/19 17:08 BP 120/70 10/13/19 17:08 Pulse Ox 98 10/13/19 17:08 - Orders/Labs/Meds Labs: Laboratory Tests 10/13/19 10/13/19 10/13/19 Range/Units 15:50 15:50 15:50 WBC 9.1 (4.0-11.0) K/uL RBC 3.93 L (4.50-6.50) M/uL Hgb 12.0 L (13.0-18.0) g/dL Hct 35.6 L (40.0-54.0) % MCV 91 (76-96) fL MCH 30.5 (27.0-32.0) pg MCHC 33.7 (31.0-35.0) g/dL RDW 12.9 (11.0-16.0) % Plt Count 364 (150-400) K/uL MPV 9.1 (6.0-10.0) fL Neut % (Auto) 70.6 H (45.0-70.0) % Lymph % (Auto) 17.1 L (20.0-40.0) % [place] % (Auto) 10.2 H (3.0-10.0) % Eos % (Auto) 1.8 (1.0-5.0) % Baso % (Auto) 0.3 (0.0-0.5) % Neut # (Auto) 6.41 (2.00-7.50) K/uL Lymph # (Auto) 1.55 (1.50-4.00) K/uL [place] # (Auto) 0.93 H (0.20-0.80) K/uL Eos # (Auto) 0.16 (0.04-0.40) K/uL Baso # (Auto) 0.03 (0.02-0.10) K/uL Sodium 141 (136-145) mmol/L Potassium 3.3 L (3.5-5.1) mmol/L Chloride 105 (98-107) mmol/L Carbon Dioxide 26.7 (21.0-32.0) mmol/L Anion Gap 12.6 (5.0-15.0) mmol/L BUN 17 (8-26) mg/dL Creatinine 1.20 (0.70-1.30) mg/dL Est Cr Clr Drug Dosing TNP Estimated GFR (MDRD) > 60 (>60) MLS/MIN BUN/Creatinine Ratio 14.2 (6-25) Glucose 90 (74-100) mg/dL Lactic Acid 0.8 (0.4-2.0) mmol/L Calcium 8.5 (8.5-10.1) mg/dL Troponin I < 0.017 (0.000-0.060) ng/mL B-Natriuretic Peptide 20 (0-125) pg/mL Meds: Medications Discontinued Medications Generic Name Dose Route Start Last Admin Trade Name Freq PRN Reason Stop Dose Admin Hydrocodone Bitart/Acetaminophen 2 tab 10/13/19 17:16 10/13/19 17:18 [place] 325-5 Mg PO 10/13/19 17:17 2 tab ONETIME ONE Administration Furosemide 40 mg 10/13/19 15:48 10/13/19 16:06 Lasix IVPUSH 10/13/19 15:49 40 mg NOW ONE Administration Departure - Departure Time of Disposition: 17:17 Disposition: Home, Self-Care 01 Condition: Good Clinical Impression: Edema Qualifiers: Edema type: unspecified Qualified Code(s): R60.9 - Edema, unspecified - Discharge Information *PRESCRIPTION DRUG MONITORING PROGRAM REVIEWED*: Not Applicable *COPY OF PRESCRIPTION DRUG MONITORING REPORT IN PATIENT JACK: Not Applicable Instructions: Edema, [id number] Referrals: Leticia Galvez RN [Primary Care Provider] - Forms: ED Department Discharge Additional Instructions: See Dr. Villegas tomorrow for follow up and possible RX for lasix. Return to ED for any increased or new concerning symptoms. Sepsis Event Note (ED) - Evaluation Sepsis Screening Result: No Definite Risk
[2019-10-13] MEDS ORDERED: Acetaminophen/HYDROcodone 325-5 MG Tab PO ONE (17:16)
--- NOTE | 2019-10-15 05:53 | CR ---
Date of Service: 10/13/19 Clinical Data: edema AP AND LATERAL CHEST: The patient has taken a very poor inspiration. Comparison is made to a prior exam dated 03/28/19. The heart size is normal. The lungs are clear. No pneumothorax. No pleural effusions. No evidence of acute intrathoracic disease. [id number] [facility]
== END 2019-10-13 17:33 | disposition home or self-care (01) ==
LOC: LB.ED 14:57
DX: R60.0 Localized edema (principal); Z79.899 Other long term (current) drug therapy; Z87.891 Personal history of nicotine dependence
CPT/HCPCS: 36415; 71046; 80048; 83605; 83880; 84484; 85025; 93005; 96374; 99285; A9270; J1940; 99282

== ENCOUNTER 2020-02-17 02:12 | Emergency (ER) | payer MEDICAID ==
[2020-02-17] MEDS: Ketorolac 60 MG/2 ML SDV IM ONE (02:58)
--- NOTE | 2020-02-17 03:01 | EDM.PDOC ---
ED HPI GENERAL MEDICAL PROBLEM - General Chief Complaint: General Stated Complaint: Right Hand Pain Time Seen by Provider: 02/17/20 02:45 Source of Information: Reports: Patient History Limitations: Reports: No Limitations - History of Present Illness INITIAL COMMENTS - FREE TEXT/NARRATIVE: Patient is a 44 y/o male who presents with right radial wrist pain that has been going on for "awhile." There are two lumps there that come and go. NO OTC medications tried and no follow up for this issue in the past. Right Wrist Pain Score (Numeric/FACES): 8 - Related Data Allergies Allergy/AdvReac Type Severity Reaction Status Date / Time No Known Allergies Allergy Verified 02/17/20 02:45 Home Meds: Home Meds DULoxetine [Cymbalta] 30 mg PO DAILY 02/17/20 [History] RX: Hydrocodone/Acetaminophen [Hydrocodon-Acetaminophen 5-325] 1 tab PO BID PRN 02/17/20 [History] Past Medical History - Past Health History Medical/Surgical History: Denies Medical/Surgical History Musculoskeletal History: Reports: Back Pain, Chronic Other Musculoskeletal History: acute back pain - Past Surgical History Musculoskeletal Surgical History: Reports: Arthroscopic Knee Other Musculoskeletal Surgeries/Procedures:: sees rheumatology in [place] Social & Family History - Family History Family Medical History: No Pertinent Family History - Tobacco Use Tobacco Use Status *Q: Never Tobacco User Second Hand Smoke Exposure: No - Caffeine Use Caffeine Use: Reports: Coffee, Soda - Recreational Drug Use Recreational Drug Use: No ED ROS GENERAL - Review of Systems Review Of Systems: See Below Constitutional: Reports: No Symptoms Musculoskeletal: Reports: Other (right wrist pain/lumps) Skin: Reports: No Symptoms ED EXAM, GENERAL - Physical Exam Exam: See Below Exam Limited By: No Limitations General Appearance: Alert, No Apparent Distress Respiratory/Chest: No Respiratory Distress Peripheral Pulses: 2+: Radial (L), Radial (R) Extremities: Normal Inspection, Normal Range of Motion, No Pedal Edema, Normal Capillary Refill, Other (2 ganglion cysts to right radial wrist; tender to palpation; no erythema; no induration; no fluctuance) Neurological: Alert, Oriented, CN II-XII Intact, Normal Cognition, Normal Gait, No Motor/Sensory Deficits Skin Exam: Warm, Dry, Intact, Normal Color, No Rash Course - Vital Signs Text/Narrative:: toradol 60 mg IM given. Follow up with Dr. Villegas for surgical referral. Last Recorded V/S: Last Vital Signs Temp 37.6 C 02/17/20 02:12 Pulse 94 02/17/20 02:12 Resp 18 02/17/20 02:12 BP 175/104 H 02/17/20 02:12 Pulse Ox 98 02/17/20 02:12 - Orders/Labs/Meds Meds: Medications Discontinued Medications Generic Name Dose Route Start Last Admin Trade Name Nunu PRN Reason Stop Dose Admin Ketorolac Tromethamine 60 mg 02/17/20 02:52 Toradol IM 02/17/20 02:53 ONETIME ONE Departure - Departure Time of Disposition: 03:00 Disposition: Home, Self-Care 01 Condition: Good Clinical Impression: Ganglion cyst of volar aspect of right wrist - Discharge Information *PRESCRIPTION DRUG MONITORING PROGRAM REVIEWED*: Not Applicable *COPY OF PRESCRIPTION DRUG MONITORING REPORT IN PATIENT JACK: Not Applicable Additional Instructions: Follow up with Dr. Villegas for surgical referral. Sepsis Event Note (ED) - Evaluation Sepsis Screening Result: No Definite Risk - Focused Exam Vital Signs: Vital Signs Temp Pulse Resp BP Pulse Ox 02/17/20 02:12 37.6 C 94 18 175/104 H 98
== END 2020-02-17 03:05 | disposition home or self-care (01) ==
LOC: LB.ED 02:12
DX: M67.431 Ganglion, right wrist (principal)
CPT/HCPCS: 96372; 99283; J1885

== ENCOUNTER 2021-03-03 18:20 | Emergency (ER) | payer MEDICAID ==
[2021-03-03 19:11] LABS: CORONAVIRUS COVID-19 RAPID POSITIVE
--- NOTE | 2021-03-03 19:33 | EDM.PDOC ---
ED HPI GENERAL MEDICAL PROBLEM - General Chief Complaint: Respiratory Problem Stated Complaint: short of breath Time Seen by Provider: 03/03/21 18:50 Source of Information: Reports: Patient History Limitations: Reports: No Limitations - History of Present Illness INITIAL COMMENTS - FREE TEXT/NARRATIVE: This patient presents to the emergency department for evaluation of cough and shortness of breath. He states he has had a cough for a couple of days and gets short of breath with it. He also adds that he has chest pain when he has the cough. In between the coughing episodes he states he feels pretty good and has not had a fever. His appetite is decreased because he is afraid to eat because it makes him cough. He has not had any vomiting or diarrhea. He did not recei ve Covid vaccination. - Related Data Allergies Allergy/AdvReac Type Severity Reaction Status Date / Time No Known Allergies Allergy Verified 03/03/21 19:00 Home Meds: Home Meds DULoxetine [Cymbalta] 30 mg PO DAILY 02/17/20 [History] Hydrocodone/Acetaminophen [HYDROcodone-Acetaminophen 5-325 MG] 1 tab PO BID PRN 02/17/20 [History] Past Medical History - Past Health History Medical/Surgical History: Denies Medical/Surgical History Musculoskeletal History: Reports: Back Pain, Chronic Other Musculoskeletal History: acute back pain - Past Surgical History Musculoskeletal Surgical History: Reports: Arthroscopic Knee Other Musculoskeletal Surgeries/Procedures:: sees rheumatology in [place] Social & Family History - Family History Family Medical History: No Pertinent Family History - Caffeine Use Caffeine Use: Reports: Coffee, Soda ED ROS GENERAL - Review of Systems Review Of Systems: Comprehensive ROS is negative, except as noted in HPI. ED EXAM, GENERAL - Physical Exam Exam: See Below Exam Limited By: No Limitations General Appearance: Alert, No Apparent Distress (Not here no), Anxious (Yes) Eye Exam: Bilateral Eye: EOMI, PERRL Ears: Normal External Exam Nose: Normal Inspection Head: Atraumatic, Normocephalic Neck: Normal Inspection, Full Range of Motion Respiratory/Chest: Lungs Clear, Normal Breath Sounds, Other (Patient hyperventilating. ). No: Respiratory Distress Cardiovascular: Tachycardia, Other (Mild diaphoresis.) Neurological: Alert, Oriented Psychiatric: Normal Affect Skin Exam: Warm, Dry, Intact, Normal Color #1 Interpretation EKG Date: 03/03/21 Time: 18:36 Rhythm: Other Rate (Beats/Min): 103 [place]: Normal P-Wave: Present QRS: Normal ST-T: Normal QT: Normal Course - Orders/Labs/Meds Labs: Laboratory Tests 03/03/21 Range/Units 18:50 SARS CoV-2 RNA Rapid DAWN Positive H - Re-Assessments/Exams Free Text/Narrative Re-Assessment/Exam: This patient presents for evaluation of a cough. He has had a known COVID exposure and his rapid test is positive. There are no signs at this point of other serious bacterial infection such as OM, RPA, epiglottitis, [employer], strep pharyngitis, pneumonia, sinusitis, meningitis, or bacteremia. Given clear lungs, no fever, no hypoxia and no respiratory distress I do not feel patient needs a CXR at this point as the probability of pneumonia is very unlikely. There are no concerning gastrointestinal symptoms at this point and no signs of dehydration. Close follow up with primary care physician is indicated. Return to ED for fever > 103, protracted vomiting, or confusion. 03/04/21 07:56 Departure - Departure Time of Disposition: 19:30 Disposition: Home, Self-Care 01 Clinical Impression: COVID - Discharge Information Instructions: COVID-19 Frequently Asked Questions, What You Should Know About COVID-19 to Protect Yourself and Others - CDC, How to Wear and Take Off Your Mask - CDC (06/04/2020) Forms: ED Department Discharge Additional Instructions: At home Quarantine x 5 days
== END 2021-03-03 19:20 | disposition home or self-care (01) ==
LOC: LB.ED 18:20
DX: U07.1 COVID-19 (principal)
CPT/HCPCS: 93005; 99285-25; U0002

== ENCOUNTER 2021-03-22 11:41 | Emergency (ER) | payer MEDICAID | END 2021-03-22 14:00 | disposition home or self-care (01) | LOC: LB.ED 11:41 | DX: M54.2 Cervicalgia (principal); M54.50 Low back pain, unspecified; N28.9 Disorder of kidney and ureter, unspecified; Z86.16 Personal history of COVID-19 | CPT/HCPCS: 36415; 70450; 72040; 72100; 74176; 80053; 85025; 85379; 99284-25 ==

== ENCOUNTER 2021-04-29 22:48 | Emergency (ER) | payer MEDICAID ==
[2021-04-29] MEDS ORDERED: LORazepam 2 MG/ML SDV IM ONE (23:07)
[2021-04-29] MEDS ORDERED: LORazepam 2 MG/ML SDV ONE (23:32)
[2021-04-29] MEDS ORDERED: methylPREDNISolone Sodium Succinate 125 MG/2 ML SDV IVPUSH ONE (23:48)
[2021-04-30] MEDS ORDERED: methylPREDNISolone Sodium Succinate 125 MG/2 ML SDV ONE (00:08)
[2021-04-30] MEDS: LORazepam 2 MG/ML SDV IVPUSH PRN ×3 (00:48→03:25)
[2021-04-30] MEDS ORDERED: LORazepam 2 MG/ML SDV ONE ×2 (02:30→03:35)
[2021-04-30] MEDS ORDERED: Midazolam 1 MG/ML 2 ML SDV IVPUSH ONE (02:45)
[2021-04-30] MEDS ORDERED: Haloperidol Lactate 5 MG/ML SDV IVPUSH ONE (03:28)
[2021-04-30] MEDS ORDERED: Haloperidol Lactate 5 MG/ML SDV ONE (03:36)
[2021-04-30] MEDS ORDERED: Sodium Chloride 0.9% 10 ML Syringe FLUSH PRN (09:40)
[2021-04-30] MEDS ORDERED: Sodium Chloride 0.9% 50 ML SDV FLUSH ONE (09:40)
[2021-04-30] MEDS ORDERED: Iopamidol 612 MG/ML 100 ML Bottle IV SCH (09:45)
== END 2021-04-30 12:35 | disposition home or self-care (01) ==
LOC: LB.ED 22:48
DX: F15.129 Other stimulant abuse with intoxication, unspecified (principal); R29.90 Unspecified symptoms and signs involving the nervous system
CPT/HCPCS: 36415; 70470; 80053; 80143; 80307; 81001; 85025; 85651; 86140; 96372; 96374; 96375; 96376; 99284-25; J1630; J2060; J2250; J2930

== ENCOUNTER 2024-02-05 11:32 | Emergency (ER) | payer MEDICAID ==
[2024-02-05] MEDS: Ketorolac 30 MG/ML SDV IVPUSH ONE (12:08)
[2024-02-05] MEDS: Orphenadrine 60 MG/2 ML Inj IM ONE (12:09)
[2024-02-05 12:10] LABS: BASOPHILS ABSOLUTE AUTO 0.04 K/uL (0.02-0.10); BASOPHILS PERCENT AUTO 0.5 % (0.0-0.5); EOSINOPHILS ABSOLUTE AUTO 0.17 K/uL (0.04-0.40); EOSINOPHILS PERCENT AUTO 2.3 % (1.0-5.0); HEMATOCRIT 41.1 % (40.0-54.0); HEMOGLOBIN 13.9 g/dL (13.0-18.0); LYMPHOCYTES ABSOLUTE AUTO 1.93 K/uL (1.50-4.00); MEAN CORPUSCULAR HEMOGLOBIN 30.5 pg (27.0-32.0); MEAN CORPUSCULAR HGB CONC 33.8 g/dL (31.0-35.0); MEAN CORPUSCULAR VOLUME 90 fL (76-96); MEAN PLATELET VOLUME 9.4 fL (6.0-10.0); MONOCYTES PERCENT AUTO 8.1 % (3.0-10.0); NEUTROPHILS ABSOLUTE AUTO 4.68 K/uL (2.00-7.50); NEUTROPHILS PERCENT AUTO 63.1 % (45.0-70.0); PLATELET COUNT,PLT 296 K/uL (150-400); RED BLOOD CELL COUNT 4.55 M/uL (4.50-6.50); RED CELL DISTRIBUTION WIDTH 12.6 % (11.0-16.0); WHITE BLOOD CELL COUNT,WBC 7.4 K/uL (4.0-11.0)
[2024-02-05 12:30] LABS: A/G RATIO 0.9 (0.8-2.0); ALANINE AMINOTRANSFERASE,ALT 24 U/L (12-78); ALBUMIN 3.5 g/dL (3.4-5.0); ALKALINE PHOSPHATASE 146 U/L (46-116); ANION GAP 15.2 mmol/L (5.0-15.0); ASPARTATE AMNIOTRANSFERASE,AST 13 U/L (15-37); BILIRUBIN TOTAL 0.2 mg/dL (0.0-1.0); BLOOD UREA NITROGEN,BUN 13 mg/dL (8-26); BUN/CREATININE RATIO 11.8 (6-25); CALCIUM 8.8 mg/dL (8.5-10.1); CARBON DIOXIDE,CO2 26.5 mmol/L (21.0-32.0); CHLORIDE,CL 106 mmol/L (98-107); ESTIMATED GFR 82 mL/min (>60); GLUCOSE RANDOM 86 mg/dL (74-100); POTASSIUM,K 3.7 mmol/L (3.5-5.1); PROTEIN TOTAL,TP 7.4 g/dL (6.4-8.2); SODIUM,NA 144 mmol/L (136-145)
== END 2024-02-05 13:25 | disposition home or self-care (01) ==
LOC: LB.ED 11:32
DX: S39.012A Strain of muscle, fascia and tendon of lower back, initial encounter (principal); Z86.16 Personal history of COVID-19; X58.XXXA Exposure to other specified factors, initial encounter
CPT/HCPCS: 36415; 80053; 85025; 96372; 96374; 99283; J1885; J2360

== ENCOUNTER 2024-04-02 02:25 | Emergency (ER) | payer MEDICAID ==
[2024-04-02] MEDS: Cyclobenzaprine 10 MG Tab PO ONE (03:12)
[2024-04-02] MEDS: methylPREDNISolone Sodium Succinate 40 MG/1 ML SDV IM ONE ×2 (03:14→04:15)
[2024-04-02] MEDS: Ketorolac 30 MG/ML SDV IM ONE (03:14)
== END 2024-04-02 04:15 | disposition left against medical advice (07) ==
LOC: LB.ED 02:25
DX: M19.032 Primary osteoarthritis, left wrist (principal); M19.031 Primary osteoarthritis, right wrist; Z86.16 Personal history of COVID-19
CPT/HCPCS: 96372; 99283; A9270-GY; J1885; J2919

== ENCOUNTER 2024-05-21 16:45 | Emergency (ER) | payer MEDICAID ==
[2024-05-21] MEDS: Ketorolac 30 MG/ML SDV IM ONE (17:11)
[2024-05-21] MEDS: Ketorolac 30 MG/ML SDV ONE (17:18)
[2024-05-21 17:56] LABS: BASOPHILS ABSOLUTE AUTO 0.04 K/uL (0.02-0.10); BASOPHILS PERCENT AUTO 0.6 % (0.0-0.5); EOSINOPHILS ABSOLUTE AUTO 0.22 K/uL (0.04-0.40); EOSINOPHILS PERCENT AUTO 3.2 % (1.0-5.0); HEMATOCRIT 39.3 % (40.0-54.0); HEMOGLOBIN 12.9 g/dL (13.0-18.0); LYMPHOCYTES ABSOLUTE AUTO 1.24 K/uL (1.50-4.00); LYMPHOCYTES PERCENT AUTO 17.8 % (20.0-40.0); MEAN CORPUSCULAR HEMOGLOBIN 30.1 pg (27.0-32.0); MEAN CORPUSCULAR HGB CONC 32.8 g/dL (31.0-35.0); MEAN CORPUSCULAR VOLUME 92 fL (76-96); MEAN PLATELET VOLUME 9.7 fL (6.0-10.0); MONOCYTES ABSOLUTE AUTO 0.46 K/uL (0.20-0.80); MONOCYTES PERCENT AUTO 6.6 % (3.0-10.0); NEUTROPHILS ABSOLUTE AUTO 5.02 K/uL (2.00-7.50); NEUTROPHILS PERCENT AUTO 71.8 % (45.0-70.0); PLATELET COUNT,PLT 316 K/uL (150-400); RED BLOOD CELL COUNT 4.28 M/uL (4.50-6.50); RED CELL DISTRIBUTION WIDTH 13.2 % (11.0-16.0)
[2024-05-21 18:07] LABS: ANION GAP 12.2 mmol/L (5.0-15.0); BUN/CREATININE RATIO 13.8 (6-25); CALCIUM 8.6 mg/dL (8.5-10.1); CARBON DIOXIDE,CO2 25.5 mmol/L (21.0-32.0); CREATININE 1.23 mg/dL (0.70-1.30); EST CRCL DRUG DOSING (CG) 71.85 mL/min; POTASSIUM,K 4.7 mmol/L (3.5-5.1)
[2024-05-21] MEDS: Lidocaine 1% 10 ML MDV INJECT ONE (18:32)
[2024-05-21] MEDS ORDERED: Acetaminophen/HYDROcodone 325-5 MG Tab ONE (19:00)
[2024-05-21] MEDS ORDERED: predniSONE 10 MG Tab ONE (19:00)
[2024-05-21] MEDS: Dexamethasone 4 MG/ML SDV IM ONE (19:01)
== END 2024-05-21 19:15 | disposition home or self-care (01) ==
LOC: LB.ED 16:45
DX: M19.071 Primary osteoarthritis, right ankle and foot (principal)
CPT/HCPCS: 20605; 36415; 73610; 80048; 83605; 84550; 85025; 86140; 87040; 96372; 99283; A9270; J1100; J1885; J2003; J7512

== ENCOUNTER 2024-09-06 12:06 | Emergency (ER) | payer MEDICAID | END 2024-09-06 14:45 | disposition home or self-care (01) | LOC: LB.ED 12:06 | DX: I10 Essential (primary) hypertension (principal); Z79.899 Other long term (current) drug therapy | CPT/HCPCS: 93005; 99283; A9270; 93010 ==